=== PATIENT | male | born 1990 | race Hispanic/Latino ===

== ENCOUNTER 2017-01-27 00:05 | Emergency (ER) | payer SELFPAY ==
[2017-01-27 00:12] VITALS: BMI 25.1
[2017-01-27 00:14] VITALS: TEMP 98.9
--- NOTE | 2017-01-27 00:31 | ED PDOC ---
HPI: Abdomen Time Seen by Provider: 01/27/17 00:30 Chief Complaint (Nursing): Abdominal Pain Chief Complaint (Provider): abd pain History Per: Patient Additional Complaint(s): 26-year-old male with history of chronic abdominal pain presents to emergency department with acute onset of abdominal pain that started earlier today. Patient states he has had a history of chronic abdominal pain for several years and has been worked up by several gastroenterologists in the past. He has no history of abdominal surgeries and doesn't take any meds on a regular basis for this pain. Patient presented today complaining of pain that is 10 out of 10. Patient admits to drinking alcohol this evening. He does have nausea and vomiting, he denies any diarrhea, fever or chills. Past Medical History Reviewed: Historical Data, Nursing Documentation, Vital Signs Vital Signs: Last Vital Signs Temp 98.9 F 01/27/17 00:12 Pulse 62 01/27/17 03:40 Resp 18 01/27/17 03:40 BP 137/79 01/27/17 03:40 Pulse Ox 99 01/27/17 04:21 - Medical History PMH: Chronic Pain (chronic abdominal pain) - Surgical History Surgical History: No Surg Hx - Family History Family History: States: No Known Family Hx - Living Arrangements Living Arrangements: With Friends/Others - Social History Current smoker - smoking cessation education provided: No Alcohol: Social Drugs: Denies - Home Medications Home Medications: Ambulatory Orders Medication Instructions Recorded Ondansetron [Zofran Odt] 4 mg PO ASDIR PRN #15 odt 01/27/17 - Allergies Allergies/Adverse Reactions: Allergies Allergy/AdvReac Type Severity Reaction Status Date / Time No Known Allergies Allergy Verified 01/27/17 00:12 Review of Systems ROS Statement: Except As Marked, All Systems Reviewed And Found Negative Constitutional: Negative for: Fever, Chills, Sweats, Weakness Cardiovascular: Negative for: Chest Pain Respiratory: Negative for: Cough Gastrointestinal: Positive for: Nausea, Vomiting, Abdominal Pain. Negative for : Diarrhea, Constipation, Melena, Hematochezia, Hematemesis, Rectal Pain Genitourinary Male: Negative for: Dysuria Physical Exam - Reviewed Nursing Documentation Reviewed: Yes Vital Signs Reviewed: Yes - Physical Exam Appears: Positive for: In Acute Distress (patient will not stay still on stretcher, he states when his pain is this bad he cannot lay still) Skin: Positive for: Normal Color. Negative for: Rash Eye Exam: Positive for: Normal appearance Cardiovascular/Chest: Positive for: Regular Rate, Rhythm Respiratory: Positive for: Normal Breath Sounds Gastrointestinal/Abdominal: Positive for: Other (exam limited as patient will not lay still on stretcher; non-tender abdomen noted with no distention, rebound or guarding) Back: Negative for: L CVA Tenderness, R CVA Tenderness Extremity: Positive for: Normal ROM Neurologic/Psych: Positive for: Alert, Oriented - Laboratory Results Result Diagrams: 01/27/17 00:40 01/27/17 00:40 - ECG O2 Sat by Pulse Oximetry: 99 Pulse Ox Interpretation: Normal Medical Decision Making Medical Decision Makin26 year old intoxicated male with abdominal pain, wretching upon arrival to ED. Plan: CBC CMP Lipase BAL UDS Urine dip IVF IV Zofran IV toradol 1:18 pm: Patient is still writhing in pain despite administration of zofran and toradol. He got up off stretcher and started to walk in hallway of ED with IV pole stating that he wants to leave. Patient was re-directed back to stretcher. Abdomen was re-examined and remains benign. Patient states he cannot answer my questions because he is in too much pain so he called his mother on his phone. I spoke directly with patient's mother who explained that patient has had chronic abdominal pain for several years and has been worked up with multiple ultrasounds and CT's with no conclusive results as to why he has this pain. Mother states this is the first "attack" he has had in about 1 year and he does not take any meds daily. Mother states when patient has these pain exacerbations he is usually treated in the ED setting with ativan and a strong pain medication so that he can "knock out and sleep it off." Patient was medicated with 25 mg IV phenergan and 25 mg IV benadryl. 1:43 - patient is still screaming stating he is still in pain. Vomiting has stopped. Patient was given additional 15 mg IV toradol and additional 25 mg IV benadryl. 2:08: patient is resting, appears more comfortable. He walked to bathroom and back to room without incident. 3:00: vital signs are stable, patient is aware of all diagnostic testing results. All questions answered. 4:00: IV removed and patient signed discharge paperwork. Patient left rx and discharge instructions at bedside. Disposition - Clinical Impression Clinical Impression: Abdominal pain, Alcohol intoxication - Patient ED Disposition Is Patient to be Admitted: No Counseled Patient/Family Regarding: Studies Performed, Diagnosis, Need For Followup - Disposition Referrals: [facility] [Outside] Disposition: Routine/Home Disposition Time: 02:52 Condition: STABLE Additional Instructions: Follow up with clinic or with primary care doctor. Prescriptions: Ondansetron [Zofran Odt] 4 mg PO ASDIR PRN #15 odt PRN Reason: Nausea/Vomiting Instructions: Alcohol Intoxication (ED), Abdominal Pain (ED) Forms: [employer] (Swedish) Results - Lab Results Lab Results: 01/27/17 01/27/17 00:40 00:40 WBC 16.3 H RBC 4.53 Hgb 13.7 Hct 41.2 MCV 91.0 MCH 30.3 MCHC 33.3 RDW 13.1 Plt Count 357 MPV 8.6 Neut % (Auto) 60.2 Lymph % (Auto) 30.3 Reagan % (Auto) 8.4 Eos % (Auto) 0.6 Baso % (Auto) 0.5 Neut # 9.8 H Lymph # 4.9 H Reagan # 1.4 H Eos # 0.1 Baso # 0.1 Sodium 147 Potassium 3.9 Chloride 106 Carbon Dioxide 21 L Anion Gap 24 H BUN 8 L Creatinine 0.9 Est GFR ( Amer) > 60 Est GFR (Non-Af Amer) > 60 Random Glucose 106 Calcium 9.2 Total Bilirubin 0.3 AST 24 ALT 20 L Alkaline Phosphatase 60 Total Protein 7.9 Albumin 4.9 Globulin 2.9 Albumin/Globulin Ratio 1.7 Lipase 117 Alcohol, Quantitative 135 H
[2017-01-27 00:59] LABS: BASO # 0.1 K/uL (0.0-0.2); BASO % 0.5 % (0.0-2.0); EOS # 0.1 K/uL (0.0-0.7); EOS % 0.6 % (0.0-4.0); HEMATOCRIT 41.2 % (35.0-51.0); LYMPH # 4.9 K/uL (1.0-4.3); LYMPH % 30.3 % (20.0-40.0); MEAN CORPUSCULAR HEMOGLOBIN 30.3 pg (27.0-31.0); MEAN CORPUSCULAR HGB CONC 33.3 g/dL (33.0-37.0); MEAN PLATELET VOLUME 8.6 fl (7.2-11.7); MONO # 1.4 K/uL (0.0-0.8); MONO % 8.4 % (0.0-10.0); NEUT # 9.8 K/uL (1.8-7.0); NEUT % 60.2 % (50.0-75.0); RED CELL DISTRIBUTION WIDTH 13.1 % (11.5-14.5); WHITE BLOOD COUNT 16.3 K/uL (4.8-10.8)
[2017-01-27] MEDS ORDERED: DiphenhydrAMINE 50 mg/ml Inj IV STA ×2 (01:04→01:41)
[2017-01-27 01:09] LABS: ALB/GLOB RATIO 1.7 (1.0-2.1); ALCOHOL SERUM 135 mg/dl (0-10); ALKALINE PHOSPHATASE 60 U/L (38-126); ALT/SGPT 20 U/L (21-72); AST/SGOT 24 U/L (17-59); BILIRUBIN,TOTAL 0.3 mg/dl (0.2-1.3); BLOOD UREA NITROGEN 8 mg/dl (9-20); CALCIUM 9.2 mg/dL (8.4-10.2); CARBON DIOXIDE 21 mmol/L (22-30); CHLORIDE 106 mmol/L (98-107); GFR AFRICAN-AMERICAN > 60; GLUCOSE,RANDOM 106 mg/dL (75-110); LIPASE 117 U/L (23-300); POTASSIUM 3.9 MMOL/L (3.6-5.0); SODIUM 147 mmol/l (132-148); TOTAL PROTEIN 7.9 G/DL (6.3-8.2)
[2017-01-27] MEDS ORDERED: DiphenhydrAMINE 50 mg/ml Inj ONE (01:14)
[2017-01-27 03:40] VITALS: BP 137/79; PULSE 62; RESP 18
[2017-01-27 03:43] VITALS: O2SAT 99
== END 2017-01-27 04:19 | disposition home or self-care (01) ==
LOC: H.ER 00:05
DX: R10.9 Unspecified abdominal pain (principal); G89.29 Other chronic pain; F10.129 Alcohol abuse with intoxication, unspecified
CPT/HCPCS: 80053; 83690; 85025; 96374; 96375; 96376; 99283; G0480; J1200; J1885; J2405; J2550